=== PATIENT | female | born 2000 | race Caucasian/White ===

== ENCOUNTER 2018-04-29 00:03 | Emergency (ER) | payer OTHER ==
[2018-04-29] MEDS ORDERED: diPHENhydraMINE IV* 50 MG in NS 0.9% 50 ML* 50 ML IVPB ONE (00:37)
[2018-04-29] MEDS ORDERED: Famotidine IV * 20 MG in NS 0.9% 100 ML* 100 ML IVPB ONE (00:37)
[2018-04-29] MEDS ORDERED: methylPREDNISolone 125 MG* 2 ML VIAL IV ONE (00:37)
[2018-04-29] MEDS ORDERED: Albuterol 2.5 MG/3 ML NEB.SOL* (0.083%) INH ONE (00:37)
[2018-04-29] MEDS ORDERED: NS 0.9% 1000 ML* 1,000 ML IV ONE (00:37)
--- NOTE | 2018-04-29 00:49 | ED ---
Allergic Reaction/Systemic - HPI Summary HPI Summary: Patient is a 17-year-old female who presents emergency department for an allergic reaction to nuts. Patient states she Only ate ice cream contained nuts. Incident occurred just prior to arrival. Patient states her EpiPen was and she did not use it. Patient currently complaining of facial swelling and itching as well as mild wheezing. Symptoms are moderate to severe in severity. No current modifying factors. - History of Current Complaint Chief Complaint: EDAllergicReaction Time Seen by Provider: 04/29/18 00:33 Hx Obtained From: Patient, Family/Roll Capper Pain Intensity: 0 - Allergies/Home Medications Allergies/Adverse Reactions: Allergies Allergy/AdvReac Type Severity Reaction Status Date / Time MS Peanut Oil [Peanut Oil] Allergy Hives/Diff. Verified 04/29/18 00:12 Breathing/I tching Tree Nuts Allergy Hives/Diff. Verified 04/29/18 00:12 Breathing/I tching PMH/Surg Hx/FS Hx/Imm Hx Previously Healthy: Yes Respiratory History: Reports: Hx Asthma - PRN ALBUTEROL GI History: Reports: Hx Gastroesophageal Reflux Disease Sensory History: Reports: Hx Contacts or Glasses - GLASSES Denies: Hx Hearing Aid Opthamlomology History: Reports: Hx Contacts or Glasses - GLASSES Psychiatric History: Reports: Hx Depression - HASN'T STARTED MEDICATION YET - Surgical History Surgery Procedure, Year, and Place: DENTAL WORK A YOUNG CHILD Hx Anesthesia Reactions: No Infectious Disease History: No Infectious Disease History: Denies: Traveled Outside the [place] in Last 30 Days - Social History Occupation: Student Lives: With Family Alcohol Use: None Hx Substance Use: No Substance Use Type: Reports: None Hx Tobacco Use: No Smoking Status (MU): Never Smoked Tobacco Review of Systems Positive: Shortness Of Breath Gastrointestinal: Negative Positive: Rash Neurological: Negative All Other Systems Reviewed And Are Negative: Yes Physical Exam Triage Information Reviewed: Yes Vital Signs On Initial Exam: Initial Vitals Temp Pulse Resp BP Pulse Ox 99.3 F 82 16 112/75 100 04/29/18 00:05 04/29/18 00:05 04/29/18 00:05 04/29/18 00:05 04/29/18 00:05 Vital Signs Reviewed: Yes Appearance: Positive: Well-Appearing - Patient sitting up in bed in no acute distress. Mild facial swelling noted. Speaking in full sentences without signs respiratory distress. Parents present. Skin: Positive: Warm, Dry, Other - Mild diffuse erythema to face Head/Face: Positive: Normal Head/Face Inspection Eyes: Positive: Normal, EOMI Neck: Positive: Supple Respiratory/Lung Sounds: Positive: Other - Mild diffuse expiratory wheeze. No accessory muscle use, respiratory stridors or retractions. Cardiovascular: Positive: Normal, RRR Neurological: Positive: Normal, CN Intact II-III Psychiatric: Positive: Affect/Mood Appropriate Diagnostics - Vital Signs Vital Signs Temp Pulse Resp BP Pulse Ox 04/29/18 00:05 99.3 F 82 16 112/75 100 - Laboratory Lab Statement: Any lab studies that have been ordered have been reviewed, and results considered in the medical decision making process. Allergic Reaction Course/Dx - Course Course Of Treatment: Pt. presenting for allergic rxn to peanuts. She is c/o mild facial swelling and redness. She has mild wheezing on exam. Pt. is well appearing without signs of respiratory distress. O2 saturation is 100% on RA which is normal. BP stable. IV placed. Will give fluids, benadryl, solumedrol, pepcid and albuterol. 0210: Pt. sleeping comfortably. Facial swelling and redness improving. 0300: Pt. re-examed, she is sleeping comfortably. Pt. states she is feeling better. She still has mild facial edema and hives to face , will give sc epi. Dr. Smith will follow pt. up for disposition. - Diagnoses Differential Diagnosis/HQI/PQRI: Positive: Airway Obstruction, Anaphylaxis, Angioedema, Bronchospasm Provider Diagnoses: Allergic reaction Discharge - Sign-Out/Discharge Documenting (check all that apply): Sign-Out Patient Signing out patient TO: Herson Smith - Discharge Plan Condition: Improved Disposition: HOME Prescriptions: EPINEPHrine [Epipen] 0.3 mg SUBCUT ONCE #1 auto.injct Patient Education Materials: General Allergic Reaction (ED), Peanut Allergy (ED ) Referrals: Carol Elizalde MD [Primary Care Provider] - Additional Instructions: Return to ER if symptoms change or worsen Use epipen for severe allergic reaction - Billing Disposition and Condition Condition: IMPROVED Disposition: Home
[2018-04-29] MEDS ORDERED: EPINEPHrine AMP 1 MG/ML SUBCUT ONE (03:05)
[2018-04-29] MEDS ORDERED: EPINEPHRINE 1 MG/ML 1 ML VIAL SUBCUT ONE (03:30)
[2018-04-29 05:27] VITALS: BP 114/68
== END 2018-04-29 05:26 | disposition home or self-care (01) ==
LOC: ED 00:03
DX: T78.1XXA Other adverse food reactions, not elsewhere classified, initial encounter (principal); R21 Rash and other nonspecific skin eruption; X58.XXXA Exposure to other specified factors, initial encounter
CPT/HCPCS: 96374; 96375; 99283; J0171; J1200; J2930